=== PATIENT | male | born 1965 | race Caucasian/White ===

== ENCOUNTER 2017-02-01 13:38 | Inpatient (IN) | payer BC, OTHER ==
[~2017-02-01] VITALS: Ht 190.5 cm; Wt 116.6 kg
[2017-02-01 13:49] VITALS: BP_SYST 118
--- NOTE | 2017-02-01 13:55 | NUR ---
Pt placed to ER bed 04. Report received from EDISON Prajapati. Pt sent from PCP regarding elevated glucose level and uncontrolled diabetes. Pt c/o polydypsia, polyuria. Denies c/o N/V/D, non-diaphoretic, denies c/o pain or discomfort.
[2017-02-01] MEDS ORDERED: NACL 0.9% 1,000 ML IV ONE ×3 (14:00→16:15)
[2017-02-01] MEDS ORDERED: METO25TA6 PO (14:01)
[2017-02-01] MEDS ORDERED: LOSA100T11 PO (14:01)
[2017-02-01] MEDS ORDERED: GLU500 PO (14:01)
[2017-02-01] MEDS ORDERED: HYDR12.585 PO (14:01)
--- NOTE | 2017-02-01 14:10 | NUR ---
# 20 gauge angiocath placed to [facility]. Use of asceptic technique. Opsite placed over site. Blood return noted. Blood for lab drawn from site. Flushed with 10 cc of normal saline. No evidence of infiltration noted. Patient tolerated well.
--- NOTE | 2017-02-01 14:15 | NUR ---
Dr. Daniel at bedside to assess pt.
[2017-02-01 14:34] LABS: BASOPHILS # (AUTO) 0.1 K/uL (0.0-0.2); BASOPHILS % (AUTO) 1.1 % (0.0-2.0); EOSINOPHILS # (AUTO) 0.1 K/uL (0.0-0.4); EOSINOPHILS % (AUTO) 2.1 % (0.0-4.0); HEMATOCRIT 44.7 % (36-54); HEMOGLOBIN 15.6 g/dL (14.0-18.0); LYMPHOCYTES # (AUTO) 2.6 K/uL (1.0-5.5); MEAN CORPUSCULAR HEMOGLOBIN 33 pg (27-31); MEAN CORPUSCULAR HGB CONC 35 % (32-36); MEAN CORPUSCULAR VOLUME 93 fL (79.0-98.0); MONOCYTES # (AUTO) 0.7 K/uL (0.0-1.0); MONOCYTES % (AUTO) 9.6 % (1.7-9.3); NEUTROPHILS # (AUTO) 3.6 K/uL (1.8-7.7); NEUTROPHILS % (AUTO) 50.2 % (40.0-70.0); PLATELET COUNT (AUTO) 209 K/uL (130-430); RED BLOOD CELL COUNT(AUTO) 4.82 MIL/uL (4.2-6.2); RED CELL DISTRIBUTION WIDTH 11.6 % (9.0-15.0); WHITE BLOOD COUNT (AUTO) 7.1 K/uL (4.8-10.8)
--- NOTE | 2017-02-01 15:00 | NUR ---
Pt AAOx4, even and non-labored respirations, BBS clear. Pt denies c/o pain or discomfort, no needs verbalized at this time.
[2017-02-01 15:10] LABS: CALCIUM 9.7 mg/dL (8.4-11.0); CREATININE 1.55 mg/dL (0.55-1.30); POTASSIUM 4.3 mmol/L (3.5-5.1)
[2017-02-01 15:11] LABS: TOTAL BILIRUBIN 0.6 mg/dL (0.0-1.0)
[2017-02-01 15:16] LABS: BILIRUBIN,URINE NEGATIVE (NEGATIVE); CLARITY/URINE CLEAR (CLEAR); COLOR,URINE YELLOW (YELLOW); GLUCOSE,URINE 3+ (NEGATIVE); KETONES,URINE 2+ (NEGATIVE); LEUKOCYTE ESTERASE ,URINE NEGATIVE (NEGATIVE); NITRITE, URINE NEGATIVE (NEGATIVE); PROTEIN URINE NEGATIVE (NEGATIVE); UROBILINOGEN,URINE 0.2 (0.2-1.0)
[2017-02-01 15:28] LABS: BLOOD, URINE TRACE (NEGATIVE)
[2017-02-01 15:29] LABS: BACTERIA,URINE FEW /HPF (None Seen); MUCUS,URINE None Seen /LPF (None Seen); RBC,URINE NONE SEEN /HPF (0-3); WBC,URINE 0-3 /HPF (0-3)
--- NOTE | 2017-02-01 16:50 | NUR ---
Patient will be admitted to care of Dr. Stevens. Admitted to Tele unit. Will go to room 135. Belongings list completed. Summary report printed. Bedside report given to receiving RN.
--- NOTE | 2017-02-01 17:04 | NUR ---
Admission Note Received patient from ER with diagnosis of Uncontrolled Diabetes. Initial Plan of Care discussed-patient verbalized understanding. Oriented to room, call light, pain management and safety.
[2017-02-01 17:12] VITALS: BP_SYST 124
[2017-02-01] MEDS ORDERED: DEXTROSE 50%-WATER 50 ML DISP.SYRIN IVP PRN ×2 (17:15)
[2017-02-01] MEDS ORDERED: GLUCOSE 15 GM GEL (in 37.5 GM TUBE) PO PRN ×2 (17:15)
--- NOTE | 2017-02-01 17:44 | NUR ---
RN NOTES report given by EDISON Beverly , pt. came from ER. Initial assessment and admission started.awake, alert, oriented to room, use call light and bed control.
[2017-02-01] MEDS: NACL 0.9% 1,000 ML IV SCH (18:00)
[2017-02-01] MEDS: INSULIN REGULAR, HUMAN 100 UNITS/ML, 10 ML VIAL (novoLIN R) SUBCUT PRN ×2 (18:08→22:16)
--- NOTE | 2017-02-01 18:19 | NUR ---
ENDOCRINE CONSULT: CONSULT CALLED TO [facility] AND SPOKE TO TERESSA.RE:UNCONTROLLED DIABETES.
--- NOTE | 2017-02-01 18:34 | NUR ---
CLOSING NOTES pt. ate 100% of his meal, IVF of NS infusing @ 70 ml/hr. pt. informed he could go bathroom if needed and use of call light for help. checked Blood Sugar and sliding scale coverage given , waiting for forestry crew chief to call back.
--- NOTE | 2017-02-01 19:31 | NUR ---
ENDORSED PT. TO INCOMING SHIFT WITH NURSE RUIZ.
--- NOTE | 2017-02-01 20:00 | NUR ---
Opening Note Report received from day shift RN. Patient is currently in stable condition and resting in bed. IV is on the right hand running NS@70ml/hr. Call light is within reach. Instructed to use it whenever in need of assistance. Will follow up with consult with Dr. Ferraro.
[2017-02-01 20:16] VITALS: BP_SYST 116
--- NOTE | 2017-02-01 21:26 | NUR ---
PAGED DR JAMA SPOKE WITH DAVID
--- NOTE | 2017-02-01 21:50 | NUR ---
Spoke with Spoke with Dr. Ferraro for blood sugar of 468. Covered with 12 units of Novolin R. Orders received for Levemir 10 units one time dose as well as labs.
--- NOTE | 2017-02-01 22:30 | NUR ---
Rounds Patient is in stable condition. Currently resting in bed. call light is within reach.
[2017-02-01 22:43] LABS: CALCIUM 8.3 mg/dL (8.4-11.0); CREATININE 1.2 mg/dL (0.55-1.30); POTASSIUM 3.7 mmol/L (3.5-5.1)
[2017-02-02] VITALS (7 sets, daily range): BP systolic 91–118
--- NOTE | 2017-02-02 00:10 | NUR ---
Rounds Patient is resting in bed. Call light is within reach.
--- NOTE | 2017-02-02 02:00 | NUR ---
Rounds Patient is sleeping in bed. Call light is within reach.
--- NOTE | 2017-02-02 04:00 | NUR ---
Rounds Patient is sleeping in bed. call light is within reach.
--- NOTE | 2017-02-02 06:00 | NUR ---
Blood sugar Current blood sugar is 326. Covered with 8 units of Novolin R.
[2017-02-02] MEDS: INSULIN REGULAR, HUMAN 100 UNITS/ML, 10 ML VIAL (novoLIN R) SUBCUT PRN ×4 (06:15→21:03)
[2017-02-02 06:18] LABS: BASOPHILS # (AUTO) 0.1 K/uL (0.0-0.2); EOSINOPHILS # (AUTO) 0.4 K/uL (0.0-0.4); EOSINOPHILS % (AUTO) 7.3 % (0.0-4.0); HEMATOCRIT 39.7 % (36-54); HEMOGLOBIN 13.9 g/dL (14.0-18.0); LYMPHOCYTES # (AUTO) 2.3 K/uL (1.0-5.5); LYMPHOCYTES % (AUTO) 48.1 % (20.5-51.5); MEAN CORPUSCULAR HEMOGLOBIN 33 pg (27-31); MEAN CORPUSCULAR HGB CONC 35 % (32-36); MEAN CORPUSCULAR VOLUME 93 fL (79.0-98.0); MONOCYTES # (AUTO) 0.6 K/uL (0.0-1.0); MONOCYTES % (AUTO) 11.6 % (1.7-9.3); NEUTROPHILS # (AUTO) 1.6 K/uL (1.8-7.7); PLATELET COUNT (AUTO) 154 K/uL (130-430); RED BLOOD CELL COUNT(AUTO) 4.26 MIL/uL (4.2-6.2); RED CELL DISTRIBUTION WIDTH 11.8 % (9.0-15.0)
--- NOTE | 2017-02-02 06:30 | NUR ---
Closing Note Patient is in stable condition. Currently sitting in bed. IV is on the right hand running NS @100ml/hr. Report given to Rula Ann RN. Call light is within reach.
[2017-02-02 06:35] LABS: CALCIUM 8.2 mg/dL (8.4-11.0); CREATININE 0.99 mg/dL (0.55-1.30); POTASSIUM 3.9 mmol/L (3.5-5.1)
--- NOTE | 2017-02-02 08:00 | NUR ---
AM NOTES PT IN BED AWAKE, ALERT AND ORIENTED. COMPLAIN OF MILD PAIN ON THE RT KNEE. IVF INFUSING WELL. ENC TO CALL FOR HELP NEEDED. CALL LIGHT IN REACH. WILL MONITOR.
[2017-02-02] MEDS: LOSARTAN POTASSIUM 50 MG TABLET (COZAAR) PO SCH (09:40)
[2017-02-02] MEDS: NACL 0.9% 1,000 ML IV SCH ×3 (09:40→20:52)
[2017-02-02] MEDS: METOPROLOL TARTRATE 25 MG TABLET PO SCH ×2 (09:41→20:47)
--- NOTE | 2017-02-02 10:08 | NUR ---
NOTES IN BED, TALKING ON THE PHONE. NO DISTRESS NOTED.
[2017-02-02] MEDS ORDERED: INSULIN Aspart Prota/Aspar MIX 70-30, 100 UNITS/ML, 10 ML VIAL SUBCUT SCH (11:50)
--- NOTE | 2017-02-02 12:00 | NUR ---
MD ROUNDS SEEN BY DR. JAMA AT BEDSIDE.
--- NOTE | 2017-02-02 12:30 | NUR ---
INSULIN PER PHARMACY, THEY DON'T CARRY NOVOLOG 70/30 ANYMORE> SUBSTITUTE TO NOVOLIN 70/30.
[2017-02-02] MEDS: INSULIN NPH/REGULAR 70-30, 100 UNITS/ML, 10 ML VIAL SUBCUT SCH ×2 (12:55→17:54)
--- NOTE | 2017-02-02 14:00 | NUR ---
NOTES RESTING IN BED. NO DISTRESS NOTED.
--- NOTE | 2017-02-02 16:03 | NUR ---
SHOWER DR. ELLISON OKAYED PT TO BE OFF MONITOR AND HAVE SHOWER.
--- NOTE | 2017-02-02 16:40 | NUR ---
PT IN THE SHOWER AT THIS TIME.
[2017-02-02] MEDS: metFORMIN HCL 500 MG TABLET PO SCH (17:53)
--- NOTE | 2017-02-02 18:40 | NUR ---
NOTES IN BED AWAKE, ON THE PHONE. STABLE. DENIES ANY PAIN. ALL NEEDS. WILL ENDORSE
--- NOTE | 2017-02-02 19:15 | NUR ---
initial nursing notes: Patient is awake. Patient is watching television. Patient has IV fluid infusing on the left hand IV access.
[2017-02-02] MEDS ORDERED: ACETAMINOPHEN 325 MG TABLET PO PRN (20:00)
--- NOTE | 2017-02-02 21:15 | NUR ---
nursing rounds: Checked patient's blood sugar, 324. Insulin coverage provided.
--- NOTE | 2017-02-02 23:15 | NUR ---
nursing rounds: Patient is asleep. Patient has no shortness of breath.
[2017-02-03] VITALS (7 sets, daily range): BP systolic 108–133
--- NOTE | 2017-02-03 01:15 | NUR ---
nursing rounds: Patient is sleeping in bed. Patient has no respiratory distress.
--- NOTE | 2017-02-03 03:15 | NUR ---
nursing rounds: Patient is asleep in bed. Patient has no falls and no injuries.
--- NOTE | 2017-02-03 05:15 | NUR ---
nursing rounds: Patient calmly resting in bed. Call light within patient's reach.
[2017-02-03] MEDS: INSULIN REGULAR, HUMAN 100 UNITS/ML, 10 ML VIAL (novoLIN R) SUBCUT PRN ×4 (06:50→21:52)
[2017-02-03 07:18] LABS: ALBUMIN 3.2 g/dL (3.4-4.8); CALCIUM 8.5 mg/dL (8.4-11.0); CREATININE 1.01 mg/dL (0.55-1.30); POTASSIUM 4.2 mmol/L (3.5-5.1); TOTAL BILIRUBIN 0.4 mg/dL (0.0-1.0); TOTAL PROTEIN, SERUM 6.8 g/dL (6.4-8.3)
[2017-02-03 07:19] LABS: THYROID STIMULATING HORMONE 1.12 uIu/mL (0.34-4.82)
--- NOTE | 2017-02-03 07:26 | NUR ---
closing nursing notes: Patient is awake, alert and oriented X 4. Patient is in no acute respiratory distress. No episodes of fall and no injuries throughout the hourly shift manager. Provided nursing report to incoming morning shift nurse, EDISON Rogers, at patient's bedside.
--- NOTE | 2017-02-03 07:48 | NUR ---
AM Rounds: Pt sitting semi-fowlers in bed. No acute signs of distress noted at this time. Iv intact to left hand with no redness or swelling noted to site. A&Ox4. Call light in reach. Pt denies pain. Continue to monitor pt closely.
[2017-02-03] MEDS: metFORMIN HCL 500 MG TABLET PO SCH ×2 (08:43→17:14)
[2017-02-03] MEDS: LOSARTAN POTASSIUM 50 MG TABLET (COZAAR) PO SCH (08:43)
[2017-02-03] MEDS: METOPROLOL TARTRATE 25 MG TABLET PO SCH ×2 (08:43→21:57)
[2017-02-03] MEDS: INSULIN NPH/REGULAR 70-30, 100 UNITS/ML, 10 ML VIAL SUBCUT SCH ×2 (08:45→17:17)
--- NOTE | 2017-02-03 09:29 | NUR ---
RN Rounds: AM meds given per MD order. Pt tolerates well. Pt denies pain at this time. Call light in reach. Continue to monitor.
--- NOTE | 2017-02-03 11:40 | NUR ---
Rounds: Blood sugar checked and coverage given per MD order. No acute signs of distress noted at this time. Call light in reach. Pt denies pain. Continue to monitor.
--- NOTE | 2017-02-03 13:40 | NUR ---
Rounds: Pt sitting semi-fowlers in bed and watching TV. No acute signs of distress noted at this time. Call light in reach. Continue to monitor.
[2017-02-03] MEDS: NACL 0.9% 1,000 ML IV SCH ×2 (14:03→20:51)
--- NOTE | 2017-02-03 15:54 | NUR ---
Rounds: Pt sitting up in bed and typing on computer. No acute signs of distress noted at this time. IV intact to RUE with no redness or swelling noted to site. Call light in reach. Pt denies pain. Continue to monitor.
--- NOTE | 2017-02-03 18:23 | NUR ---
Closing Note: Pt sitting semi-fowlers in bed. Blood sugar checked and coverage given. Pending abdominal ultrasound tonight. Pt denies pain. Pt is able to make needs known, no other needs noted at this time. IV intact to right hand. Call light in reach. Endorse plan of care to YVETTE RN.
--- NOTE | 2017-02-03 19:20 | NUR ---
initial nursing notes: Patient is awake. Patient has not eaten his dinner, waiting for abdominal ultrasound. Patient has IV fluid infusing on the left hand IV access.
--- NOTE | 2017-02-03 21:20 | NUR ---
nursing rounds: Abdominal ultrasound was done. Patient is eating his dinner.
[2017-02-03] MEDS: OMEGA-3/DHA/EPA/FISH OIL 1 GM CAPSULE PO SCH (21:59)
--- NOTE | 2017-02-03 22:09 | NUR ---
Paged paged for Dr Stevens, dialed . s/w Judith.
--- NOTE | 2017-02-03 23:20 | NUR ---
nursing rounds: Patient is asleep. Patient has no shortness of breath.
--- NOTE | 2017-02-04 01:20 | NUR ---
nursing rounds: Patient is ambulatory to the bathroom with a steady gait. No falls and no injuries noted.
--- NOTE | 2017-02-04 03:20 | NUR ---
nursing rounds: Patient is sleeping in bed. Patient has no respiratory distress.
[2017-02-04 04:04] VITALS: BP_SYST 116
--- NOTE | 2017-02-04 05:20 | NUR ---
nursing rounds: Patient calmly resting in bed. Call light within patient's reach.
[2017-02-04] MEDS: INSULIN REGULAR, HUMAN 100 UNITS/ML, 10 ML VIAL (novoLIN R) SUBCUT PRN ×2 (06:31→12:07)
[2017-02-04 07:37] LABS: CALCIUM 8.2 mg/dL (8.4-11.0); CREATININE 0.88 mg/dL (0.55-1.30); POTASSIUM 3.8 mmol/L (3.5-5.1); TOTAL BILIRUBIN 0.4 mg/dL (0.0-1.0); TOTAL PROTEIN, SERUM 6.2 g/dL (6.4-8.3)
--- NOTE | 2017-02-04 07:42 | NUR ---
closing nursing notes: Patient is awake, alert and oriented X 4. Patient is in no acute respiratory distress. No episodes of fall and no injuries throughout the night nurse. Provided nursing report to incoming morning shift nurse, EDISON Jones, at patient's bedside.
[2017-02-04 07:55] VITALS: BP_SYST 119
[2017-02-04] MEDS: metFORMIN HCL 500 MG TABLET PO SCH (07:59)
[2017-02-04] MEDS: INSULIN NPH/REGULAR 70-30, 100 UNITS/ML, 10 ML VIAL SUBCUT SCH (08:04)
--- NOTE | 2017-02-04 08:30 | NUR ---
AM ROUNDS PT SITTING UP IN BED. ON COMPUTER...DENIES PAIN AT THIS TIME...HL TO LH FLUSHES WELL...PT AMBULATES AD GINNY WITH STEADY GAIT..PT ANXIOUS TO SEE MD..CALL LIGHT/PHONE W/IN REACH...WILL CONT TO MONTR
[2017-02-04] MEDS ORDERED: OMA1G PO (08:42)
[2017-02-04] MEDS ORDERED: GLIP5TAB13 PO (08:42)
[2017-02-04] MEDS ORDERED: INSULIN NPH/REGULAR 70-30, 100 UNITS/ML, 10 ML VIAL SUBCUT ONE (09:45)
[2017-02-04] MEDS: OMEGA-3/DHA/EPA/FISH OIL 1 GM CAPSULE PO SCH (10:26)
[2017-02-04] MEDS: METOPROLOL TARTRATE 25 MG TABLET PO SCH (10:27)
[2017-02-04] MEDS: LOSARTAN POTASSIUM 50 MG TABLET (COZAAR) PO SCH (10:27)
--- NOTE | 2017-02-04 11:00 | NUR ---
ROUNDS PT STABLE....NO CHANGES...WILL CONT TO MONITOR
[2017-02-04] MEDS ORDERED: INSNPH7030 SUBCUT (11:08)
--- NOTE | 2017-02-04 11:15 | NUR ---
PER DR SCOT FOSTER FOR DISCHARGE IF OKAY WITH DR EVITA JAMA CLEARED PT FOR DISCHARGE HOME...DR ELLISON INFORMED...PT ANXIOUS TO GO HOME...
[2017-02-04 12:00] VITALS: BP_SYST 122
[2017-02-04 12:26] VITALS: BP_SYST 120
--- NOTE | 2017-02-04 13:00 | NUR ---
EDUCATED PT ON INSULIN PEN..PT UNDERSTOOD
--- NOTE | 2017-02-04 13:30 | NUR ---
D/C Patient Patient given medication reconciliation form and D/C instructions. Exit Care provided. Patient verbalized understanding. MD discussed with patient the results and treatment provided. Ambulatory with steady gait for discharge to home. Patient in stable condition, ID band removed. IV catheter removed, intact and dressing applied, no active bleeding. Rx of NOVOLIN 70/30,GLUCOYRO, AND OMACOR given. Patient educated on pain management. All belongings sent with patient.PT STABLE UPON DC
[2017-02-04] MEDS ORDERED: INSULIN NPH/REGULAR 70-30, 100 UNITS/ML, 10 ML VIAL SUBCUT SCH (17:00)
[2017-02-05 12:20] LABS: HEPATITIS A AB, IgM Negative (Negative); HEPATITIS B CORE AB, IgM Negative (Negative); HEPATITIS B SURFACE AG Negative (Negative)
== END 2017-02-04 13:30 | disposition home or self-care (01) | DRG 638 ==
LOC: SED 13:38 → STU 16:30 → SMU 02-02 16:37
PROVIDERS: ADMIT Internal Medicine; ATTEND Internal Medicine
DX: E11.65 Type 2 diabetes mellitus with hyperglycemia (principal); E87.1 Hypo-osmolality and hyponatremia; N17.9 Acute kidney failure, unspecified; I10 Essential (primary) hypertension; E86.0 Dehydration; E66.9 Obesity, unspecified; E78.1 Pure hyperglyceridemia; K76.0 Fatty (change of) liver, not elsewhere classified; Z68.32 Body mass index [BMI] 32.0-32.9, adult; Z82.49 Family history of ischemic heart disease and other diseases of the circulatory system; Z83.3 Family history of diabetes mellitus; Z79.899 Other long term (current) drug therapy
CPT/HCPCS: 36415; 76705; 80048; 80053; 80061; 81000-TC; 82962; 83036; 84443-TC; 85025; 86705; 86709; 87340; 93005; 96360; 96361; 99285; J1815; J7030

== ENCOUNTER 2018-12-19 19:04 | Emergency (ER) | payer BC ==
[~2018-12-19] VITALS: Ht 190.5 cm; Wt 119.7 kg
[~2018-12-19 19:04] MED LIST: GLIP5TAB13 PO; GLU500 PO; INSNPH7030 SUBCUT; LOSA100T3 PO; METO25TA6 PO; OMA1G PO
[2018-12-19 19:07] VITALS: BP_SYST 165
[2018-12-19] MEDS ORDERED: KETOROLAC TROMETHAMINE 30 MG VIAL IM ONE (19:45)
[2018-12-19] MEDS ORDERED: CYCLOBENZAPRINE HCL 10 MG TABLET (FLEXERIL) PO ONE (19:45)
== END 2018-12-19 20:04 | disposition home or self-care (01) ==
LOC: SED 19:04
DX: G89.29 Other chronic pain (principal); M54.42 Lumbago with sciatica, left side; E11.9 Type 2 diabetes mellitus without complications; I10 Essential (primary) hypertension; Z79.899 Other long term (current) drug therapy
CPT/HCPCS: 96372; 99283; J1885